=== PATIENT | female | born 1990 | race Caucasian/White ===

== ENCOUNTER 2020-01-09 15:43 | Inpatient (IN) | payer OTHER, SELFPAY ==
[2020-01-09] VITALS (34 sets, daily range): BP systolic 85–149; BP diastolic 45–108; PULSE 48–106; RESP 18; TEMP 36.4–36.7; O2SAT 91–100; BMI 19.1
--- NOTE | 2020-01-09 15:43 | LDADM ---
This patient, Ivonne Valle, was admitted to Labor/Delivery/Recovery 106 on 01/09/20 at 15:43. Plans for labor, pain management and were discussed with patient. Patient/family oriented to hospital policies and general routines including ID bracelet, bed and alarms, visiting hours, pain management, procedures, bathroom and other care routines, personal items, smoking policy, room service/diet and guest tray routines, security routines, and visiting hours. Patient/Family are encouraged to report perceived risks to care and to ask questions if they do not understand what they are told or what they should do. See OBIX for further documentation.
--- NOTE | 2020-01-09 16:09 | PM.OBPRVD ---
OB - Delivery Note Procedure Procedure: delivery of placenta Intrapartal events: None Induction method: none Delivery monitor: none Route of delivery: Laceration description: None Specimen: Yes Estimated blood loss (mL): 50 Anesthesia type: None Disposition: floor Complications: home delivery history of poor compliance cocaine use [place] Baby Date of : 01/09/20 Time of : 15:17 Weeks of gestation at delivery: 34 gender: Female presentation: vertex
--- NOTE | 2020-01-09 16:12 | P.HP_ITS ---
H&P: HPI History of Present Illness Chief complaint: delivery Narrative: Ivonne Valle is a 29 year old female 3 para 0202 presents via ambulance from delivery. Last menstrual period was 05/20/2019 EDC 02/24/2020 9 is confirmed by a 12 week visit. She had history of poor compliance being seen at 12 weeks and lastly at 27 weeks she had not been seen since. She was positive for cocaine on her initial urine drug screen as well as THC. On admission the placenta is delivered. There is appro [id number] of blood loss with delivery of the placenta. Review of Systems Review of Systems: All systems reviewed & are unremarkable except as noted in HPI and below Meds Home Medications and Allergies Allergies Allergy/AdvReac Type Severity Reaction Status Date / Time Penicillins Allergy Mild Verified 02/15/15 07:28 Vital Signs Vital Signs - 24 hr 01/09/20 15:50 01/09/20 16:00 Pulse Rate 80 102 H Blood Pressure 132/89 145/99 H Exam Const: General: no acute distress Eyes: General: appearance normal, both eyes and all related structures Neck: Neck: supple and no JVD Thyroid: thyroid normal Resp: Effort & Inspection: normal respiratory effort Auscultation: clear to auscultation bilaterally Cardio: Rate: regular rate Rhythm: regular rhythm GI: Inspection: normal to inspection (The fundus was firm well below the umbilicus) : General: Yes other (Placenta is delivered with no tears seen.) Skin: General skin exam: no rashes or lesions noted Extrem: General: normal to inspection and no edema Psych: Mental Status: mental status grossly normal Affect: normal affect Assessment and Plan Additional Plan Impression: 34 week now delivered the history of drug abuse poor compliance Plan: Placenta was delivered. A urine drug screen OB undertaken. Baby appears to be stable is being attended to by nursery
[2020-01-09 16:32] LABS: Basophils Absolute Auto 0.1 K/mm3 (0.0-0.1); Basophils Percent Auto 0.3 % (0.2-1.2); Hemoglobin 13.4 g/dL (12.0-15.0); Immature Granulocyte Absolute 0.45 K/mm3 (0.00-0.031); Immature Granulocyte Percent A 1.4 % (0-0.5); Lymphocytes Absolute Auto 1.49 K/mm3 (0.9-3.2); Lymphocytes Percent Auto 4.7 % (18.3-44.2); Mean Corpuscular HGB Conc 33.5 g/dl (32-36); Mean Corpuscular Hemoglobin 29.8 pg (26-34); Mean Corpuscular Volume 88.9 fl (80-100); Mean Platelet Volume 11.9 fl (7.4-10.4); Monocytes Absolute Auto 0.9 K/mm3 (0.1-0.6); Monocytes Percent Auto 2.8 % (2.6-8.5); Neutrophils Absolute Auto 28.9 K/mm3 (1.3-6.7); Neutrophils Percent Auto 90.8 % (45.5-73.1); Platelet Count Result 189 k/mm3 (150-375); Red Cell Distribution Width 13.5 % (11.5-14.5); White Blood Count 31.8 K/mm3 (4.5-10.0)
--- NOTE | 2020-01-09 16:52 | PC.NURSE ---
Addendum entered by Analia Vazquez RN 01/09/20 17:34: APGARS WERE 9/9 PER CYBER SECURITY INSTRUCTOR Original Note: ESA ARRIVED VIA AMBULANCE AT 1543 ON STRETCHER WITH FEMALE BABY IN HER ARMS. TAKEN TO ROOM 6 AND EVALUATED FOR PLACENTA B/C PT SCREAMING IN PAIN, PLACENTA REMAINED INTACT AND UNDELIVERED. NO ABNORMAL BLEEDING NOTED. PREPPED ROOM FOR DELIVERY OF PLACENTA. PT INTO A GOWN. IVF INFILTRATED IN LEFT AC AND REMOVED. Teja VALDEZ RN CALLED AND REPORTED SITUATION AND REQUESTED IN DR JON'S OFFICE AT [address] DEISY RAYMUNDO RESPONDED [id number] AND IS COMING DOWN FROM THE OFFICE. DR DEISY RAYMUNDO IN ROOM AT 1555 AND PT PLACED IN STIRRUPS FOR DELIVERY. PLACENTA DELIVERED AT 1604 [address] DEISY RAYMUNDO STATED NO IV PITOCIN IF WE CAN'T GET A LINE. FUNDUS IS FIRM AND SCANT BLEEDING, ALSO DOES NOT WANT IM PITOCIN WHEN ASKED. CLEANED UP AND WARM BLANKETS AND WILL DO ADMISSION. PT DENIES COCAINE FOR ONE WEEK AT LEAST, BUT MARIJUANA YESTERDAY AND TODAY WILL ATTEMPT TO GET A DRUG SCREEN B/C BABY IS JITTERY IN THE CRIB. PATIENT STATES HER WATER BROKE ?1445 HAD BEEN HAVING CONTRACTIONS ALL DAY BUT WHEN HER WATER BROKE THEY WERE WORSE AND CALLED 911...AMBULANCE ARRIVED AT 1512 AND CYBER SECURITY INSTRUCTOR DELIVERED VIABLE BABY GIRL AT 1517. APGARS WERE 7/9 PER CYBER SECURITY INSTRUCTOR. JUAN RIVERA/Teja VALDEZ RN/Philipp FERNANDES RN
[2020-01-09] MEDS: IBUPROFEN 600 MG TABLET PO (17:15)
[2020-01-09 17:30] LABS: HIV 1/2 Ab P24 Ag Result Negative (Negative)
[2020-01-09] MEDS: WITCH HAZEL 40 PADS 1 PAD TOPICAL (17:31)
[2020-01-09] MEDS: BENZOCAINE 20% AER SPR (*SP) 56 GM CAN 1 SPRAY TOPICAL (17:31)
[2020-01-09 18:01] LABS: Amphetamine Screen Urine Negative (Negative); Barbiturate Screen Urine Negative (Negative); Benzodiazepines Screen Urine Negative (Negative); Cannabinoid Screen Urine Positive (Negative); Cocaine Screen Urine Negative (Negative); Methadone Screen Urine Negative (Negative); Opiate Screen Urine Negative (Negative); Phencyclidine Screen Urine Negative (Negative)
--- NOTE | 2020-01-09 18:54 | OBPPTRN ---
Patient transferred to post room #282 via wheelchair. Support person present. Oriented to unit, room, information board, rooming in, admission packet and security measures. Patient verbalizes understanding. with patient.
[2020-01-10 05:26] LABS: Hematocrit 33.5 % (37.0-47.0); Hemoglobin 11.2 g/dL (12.0-15.0)
[2020-01-10 06:54] LABS: Rapid Plasma Reagin Non-Reactive (NonReactive)
--- NOTE | 2020-01-10 07:18 | PM.OBPNVD ---
OB - PN: Subj Subjective Date/time seen: 01/10/20 07:18 Patient comments: no complaints and pain well controlled baby status: doing well OB - PN: Obj Data Labs CBC & Chem 7: 01/10/20 04:24 Labs: Laboratory Results - last 24 hr 01/09/20 01/09/20 01/09/20 16:13 16:13 16:13 WBC 31.8 H RBC 4.50 Hgb 13.4 Hct 40.0 MCV 88.9 MCH 29.8 MCHC 33.5 RDW 13.5 Plt Count 189 MPV 11.9 H Immature Gran % (Auto) 1.4 H Neut % (Auto) 90.8 H Lymph % (Auto) 4.7 L Mason % (Auto) 2.8 Eos % (Auto) 0.0 Baso % (Auto) 0.3 Lymph # (Auto) 1.49 Mason # (Auto) 0.9 H Eos # (Auto) 0.0 Baso # (Auto) 0.1 Abs Immat Gran (auto) 0.45 H Absolute Neuts (auto) 28.9 H Absolute Nucleated RBC 0.0 Nucleated RBC % 0.0 Urine Opiates Screen Urine Methadone Screen Ur Barbiturates Screen Ur Phencyclidine Scrn Ur Amphetamine Screen U Benzodiazepines Scrn Urine Cocaine Screen U Cannabinoids Screen RPR Non-reactive HIV 1&2 Ab/P24 Ag 4thGn Blood Type O Positive Antibody Screen Negative 01/09/20 01/09/20 01/10/20 16:28 17:34 04:24 WBC RBC Hgb 11.2 L Hct 33.5 L MCV MCH MCHC RDW Plt Count MPV Immature Gran % (Auto) Neut % (Auto) Lymph % (Auto) Mason % (Auto) Eos % (Auto) Baso % (Auto) Lymph # (Auto) Mason # (Auto) Eos # (Auto) Baso # (Auto) Abs Immat Gran (auto) Absolute Neuts (auto) Absolute Nucleated RBC Nucleated RBC % Urine Opiates Screen Negative Urine Methadone Screen Negative Ur Barbiturates Screen Negative Ur Phencyclidine Scrn Negative Ur Amphetamine Screen Negative U Benzodiazepines Scrn Negative Urine Cocaine Screen Negative U Cannabinoids Screen Positive A RPR HIV 1&2 Ab/P24 Ag 4thGn Negative Blood Type Antibody Screen OB - PN A/P Plan day: 1 Plan: routine care Time Spent With Patient Time: Total time spent is greater than 50% in coordination of care (as documented) at patient's floor/unit and/or counseling patient: Time with patient: less than 15 minutes Review of Systems Review of Systems: All systems reviewed & are unremarkable except as noted in HPI and below Exam Const: General: no acute distress Eyes: General: appearance normal, both eyes and all related structures Neck: Neck: supple and no JVD Thyroid: thyroid normal Resp: Effort & Inspection: normal respiratory effort Auscultation: clear to auscultation bilaterally Cardio: Rate: regular rate Rhythm: regular rhythm GI: Inspection: non-distended GI Palp: Yes Soft to palpation, No Tenderness to palpation present (GI) and No Guarding due to palpation present (GI) Auscultation: normal bowel sounds : General: Yes bladder normal to palpation External Female Exam: normal external appearance Speculum Exam - Vagina: normal vaginal discharge and No vaginal bleeding Speculum Exam - Cervix: nontender Bimanual exam- vagina & uterus: bladder normal to palpation and No Cervical tenderness present OB/external & speculum: No vaginal bleeding Skin: General skin exam: no rashes or lesions noted Extrem: General: normal to inspection and no edema Psych: Mental Status: mental status grossly normal Affect: normal affect
[2020-01-10] MEDS: MULTIVIT/MIN/PREN/FOL AC/IRON TABLET 1 TAB PO (07:39)
[2020-01-10] MEDS: IBUPROFEN 600 MG TABLET PO ×2 (07:39→12:34)
[2020-01-10] MEDS: DOCUSATE SODIUM 100 MG CAPSULE PO ×2 (07:39→15:04)
[2020-01-10 07:56] VITALS: BP 123/74; PULSE 64; RESP 18; TEMP 36.6
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
[2020-01-10] MEDS: BENZOCAINE 20% AER SPR (*SP) 56 GM CAN 1 SPRAY TOPICAL (15:04)
[2020-01-10] MEDS: WITCH HAZEL 40 PADS 1 PAD TOPICAL (15:04)
[2020-01-10 20:00] VITALS: BP 108/82; PULSE 98; RESP 18; TEMP 36.7
--- NOTE | 2020-01-11 07:02 | PM.DS ---
DS: Diagnosis Admitting Diagnosis Admitting Diagnosis: 34 weeks no care DS: Summary Time Spent with Patient Time attestation: Total time spent providing and/or coordinating discharge services: Exam Const: General: no acute distress Eyes: General: appearance normal, both eyes and all related structures Neck: Neck: supple and no JVD Thyroid: thyroid normal Resp: Effort & Inspection: normal respiratory effort Auscultation: clear to auscultation bilaterally Cardio: Rate: regular rate Rhythm: regular rhythm GI: Inspection: non-distended GI Palp: Yes Soft to palpation, No Tenderness to palpation present (GI) and No Guarding due to palpation present (GI) Auscultation: normal bowel sounds : General: Yes bladder normal to palpation External Female Exam: normal external appearance Speculum Exam - Vagina: normal vaginal discharge and No vaginal bleeding Speculum Exam - Cervix: nontender Bimanual exam- vagina & uterus: bladder normal to palpation and No Cervical tenderness present OB/external & speculum: No vaginal bleeding Skin: General skin exam: no rashes or lesions noted Extrem: General: normal to inspection and no edema Psych: Mental Status: mental status grossly normal Affect: normal affect DS: Data Data Completed and Pending Pending studies at discharge: Pending at discharge 01/09/20 17:35 Surgical [PTH] Routine Discharge Plan Discharge Attending physician on discharge: Santi Calvert Discharging Clinician: Snati Calvert Patient Disposition: Home Health Service Activity: no shower, no straining, may drive after 2 weeks and pelvic rest Diet: heart healthy Wound Care Instructions: follow printed instructions Discharge Instructions: Education: Mom and Baby Guide Given to: Mother Follow-Up: Call your delivering provider's office for an appointment to be seen in: 4 Weeks Mom and baby should come to the [facility] for the follow-up appointment. Appointment Date/Time: January 12, 2020 at 11:00 am What to expect at your follow-up visit: Blood Pressure Check Call [phone] if you are unable to keep your appointment time. BREAST CARE: 1. Wear a snug supportive bra. 2. For engorgement discomfort: Bottle Feeding: A. May apply ice packs PERINEAL CARE: 1. Until bleeding stops, use your kristopher bottle after urinating 2. Change your pad frequently throughout the day 3. You may take sitz baths several times a day (fill your bathtub with warm water and soak for 20 minutes.) Do NOT bathe in the water 4. No tub baths until seen by your physician - You may shower ACTIVITY: 1. Rest as much as possible. 2. Do not exercise or lift anything heavier than your baby (such as laundry or other children.) 3. Avoid stairs or driving as much as possible. 4. Do not put anything into the vagina. No douching, tampons, or sexual activity until seen by physician. NOTIFY PHYSICIAN IF YOU HAVE ANY QUESTIONS OR IF ANY OF THE FOLLOWING SYMPTOMS OCCUR: 1. If your perineum becomes red, swollen, or more painful than what you have experienced in the hospital. 2. If your vaginal bleeding becomes foul smelling. 3. If your vaginal bleeding becomes more heavy than a period or if your bleeding changes from pink to bright red. However, you may pass an occasional walnut-sized clot once or twice for the first week . 4. If you experience a sharp, shooting pain in you calves. 5. If you discover a hard, reddened area on your breast or if you experience flu-like symptoms. 6. Call for temp 100.4 or greater DIET: 1. Eat regular, well-balanced meals. 2. Drink plenty of fluids daily. If , drink to thirst. Patient Instructions: Antibiotic Form Stand Alone Forms: General Discharge Information Follow-up/Referrals: Santi Calvert MD [Physician] - Discharge Medications: Continued ergocalciferol (vitamin D2) 1,250 mcg
--- NOTE | 2020-01-11 07:04 | P.PNOB_ITS ---
OB - PN: Subj Subjective Date/time seen: 01/11/20 07:04 Patient comments: no complaints and pain well controlled OB - PN: Obj Data Labs CBC & Chem 7: 01/10/20 04:24 OB - PN A/P Plan day: 2 Plan: routine care, discharge home and follow up 6 weeks Time Spent With Patient Time: Total time spent is greater than 50% in coordination of care (as documented) at patient's floor/unit and/or counseling patient: Time with patient: less than 15 minutes Review of Systems Review of Systems: All systems reviewed & are unremarkable except as noted in HPI and below Exam Const: General: no acute distress Eyes: General: appearance normal, both eyes and all related structures Neck: Neck: supple and no JVD Thyroid: thyroid normal Resp: Effort & Inspection: normal respiratory effort Auscultation: clear to auscultation bilaterally Cardio: Rate: regular rate Rhythm: regular rhythm GI: Inspection: non-distended GI Palp: Yes Soft to palpation, No Tenderness to palpation present (GI) and No Guarding due to palpation present (GI) A uscultation: normal bowel sounds : General: Yes bladder normal to palpation External Female Exam: normal external appearance Speculum Exam - Vagina: normal vaginal discharge and No vaginal bleeding Speculum Exam - Cervix: nontender Bimanual exam- vagina & uterus: bladder normal to palpation and No Cervical tenderness present OB/external & speculum: No vaginal bleeding Skin: General skin exam: no rashes or lesions noted Extrem: General: normal to inspection and no edema Psych: Mental Status: mental status grossly normal Affect: normal affect
[2020-01-11 08:00] VITALS: BP 100/71; PULSE 64; RESP 16; TEMP 36.6
[2020-01-11 09:30] VITALS: PULSE 64; RESP 16; O2SAT 99
--- NOTE | 2020-01-11 09:30 | PC.NURSE ---
PT introductions made and plan of care discussed per post , pain management, bottle feeding, daily care activities, pending discharge to home. DCFS visit and pending instructions. PT verbalized understanding of such care.
--- NOTE | 2020-01-11 09:30 | PC.NURSE ---
Patient viewed the discharge video Mother & Baby Care, The First Two Weeks . Patient was given the opportunity and encouraged to ask questions. Patient verbalized understanding of information shared and has been given the mother/baby guide for home reference.
[2020-01-11] MEDS: DOCUSATE SODIUM 100 MG CAPSULE PO (09:31)
[2020-01-11] MEDS: IBUPROFEN 600 MG TABLET PO (09:31)
--- NOTE | 2020-01-11 11:15 | PC.NURSE ---
PT tearful and states that she is concerned about her other child not being present at the home visit with DCFS. Infant at a friends and they do not have the car seat to get child to the visit. Discussed various options. Pt reaching out to other people for assistance.
--- NOTE | 2020-01-11 11:30 | PC.NURSE ---
PT outside to smoke unaccompanied. PT had been informed of [place] no smoking policy.
--- NOTE | 2020-01-11 12:45 | PC.NURSE ---
PT received discharge instructions per protocol and verbalized understanding of such instructions.
--- NOTE | 2020-01-11 13:18 | PC.NURSE ---
PT discharged to home ambulatory accompanied by significant other and to waiting car. Follow up appts confirmed
--- NOTE | 2020-01-11 16:24 | PCCCNOTE ---
Care Coordination spoke with Bree Gasca with DCFS who states that she came and spoke with pt. during hospitalization. Bree states that pt. was appropriate during assessment. Bree did a home visit with FOB and states that baby is safe to return home with pt. and FOB. DCFS will continue to follow family. Pt.'s intake ID is [id number]. No further need for Care Coordination services at this time.
[2020-01-12 11:26] VITALS: BP 118/76; PULSE 78; RESP 18; TEMP 36.9
== END 2020-01-11 13:18 | disposition home or self-care (01) | DRG 560 ==
LOC: ANHLDR 16:39 → ANHOB2 01-10 13:28 → ANHLDR 01-15 06:46 → ANHOB2 01-15 06:46
PROVIDERS: Admitting Provider Student in an Organized Health Care Education/Training Program; Visit Provider Obstetrics & Gynecology
DX: Z39.0 Encounter for care and examination of mother immediately after delivery (principal); O99.325 Drug use complicating the puerperium; F12.10 Cannabis abuse, uncomplicated; F14.10 Cocaine abuse, uncomplicated; O99.335 Smoking (tobacco) complicating the puerperium; F17.210 Nicotine dependence, cigarettes, uncomplicated
CPT/HCPCS: 36415; 59414; 80307; 85014; 85018; 85025; 86592; 86703; 86850; 86900; 86901; 88307; A9270; G0432; J2590

== ENCOUNTER 2021-02-08 06:25 | Inpatient (IN) | payer OTHER, SELFPAY ==
[2021-02-08] VITALS (18 sets, daily range): BP systolic 117–146; BP diastolic 58–101; PULSE 51–93; RESP 16–18; TEMP 36.4–36.8; BMI 15.7
--- NOTE | 2021-02-08 07:16 | PM.IMHP ---
H&P: HPI History of Present Illness Date/Time: 02/08/21 07:16 30yo @ 34w5d by 2nd trimester US brought into to L&D by EMS after home delivery. She states that she started to have contractions around 4-5am which worsened throughout the morning. Was unsure if she was going into labor. She has been dealing with dental issues and has broken teeth on her left side that is causing pain. She states she took one vicodin from a friend last night because of the pain. She reports marijuana and tobacco use but no other drugs. Chief Complaint: I delivered at home Review of Systems Constitutional: Constitutional: Reports no additional constitutional complaints Eyes: Eyes: Reports no additional eye complaints ENT: Reports dental pain Cardiovascular: Cardiovascular: Reports no additional cardiovascular complaints Respiratory: Respiratory: Reports no additional respiratory complaints Gastrointestinal: Gastrointestinal: Reports no additional gastrointestinal complaints Genitourinary: Genitourinary: Reports pelvic pain Musculoskeletal: Musculoskeletal: Reports no additional musculoskeletal complaints Integumentary/Breasts: Skin/Breast: Reports system reviewed and no additional complaints, except as docu Neurologic: Reports system reviewed and no additional complaints, except as documented Psychiatric: Psychiatric: Reports no additional psychiatric complaints Endocrine: Endocrine: Reports no additional endocrine complaints Hematologic/Lymphatic: Hematologic/Lymphatic: Reports no additional hematologic/lymphatic complaints Allergic/Immunologic: Allergic/Immunologic: Reports no additional allergic/immunologic complaints [facility] Family History Family History Mother Scoliosis Chronic obstructive pulmonary disease Social History Social History (Updated 02/08/21 @ 07:21 by Zander Corona DO) Years smoked: 14 Smoking status: Current every day smoker Tobacco type: cigarettes Second hand tobacco smoke exposure: Yes Substance use: current Substance use type: marijuana Meds Home Medications and Allergies Home Medications Medication Instructions Recorded Confirmed Type Se--19 1 tablet PO DAILY 01/09/20 01/09/20 History ergocalciferol (vitamin D2) 1,250 mcg PO WEEKLY 01/09/20 01/09/20 History Allergies Allergy/AdvReac Type Severity Reaction Status Date / Time Penicillins Allergy Mild Verified 02/15/15 07:28 Vital Signs Vital Signs - 24 hr 02/08/21 06:31 02/08/21 07:00 02/08/21 07:15 Pulse Rate 90 93 Blood Pressure 132/88 122/89 139/99 H Exam Const: General: cooperative, alert, awake, Physically active, anxious, poor hygiene and uncomfortable; No comfortable (uncomfortable and in pain) Orientation/consciousness: oriented to person, oriented to place and oriented to time Resp: Effort & Inspection: normal respiratory effort, able to speak in complete sentences, normal respiratory pattern, no audible wheezes and no cough Cardio: Rate: regular rate GI: GI Palp: No abdominal tenderness, Yes Soft to palpation, No Tenderness to palpation present (GI) and No Guarding due to palpation present (GI) : External Female Exam: normal external appearance OB/external & speculum: other (placenta still in situ) Neuro: General: oriented to person, oriented to place and oriented to time Psych: Appearance: grossly normal Mental Status: mental status grossly normal Speech and movement: Normal speech and movement present Affect: normal affect Attitude: cooperative Thought process: Normal thought process present Thought content: Yes Normal thought content present Insight: Good insight present (Psych) Judgement: Good judgement present (Psych) Assessment and Plan Assessment and plan (1) (normal spontaneous vaginal delivery): Code(s): O80 - Encounter for full-term uncomplicated delivery Status: Acute Assessment and Plan:
--- NOTE | 2021-02-08 07:28 | WPDHPUPDATE1 ---
History and Physical Update Update Date/Time: 02/08/21 07:28 History and Physical has been reviewed, including an updated exam of the patient. There are NO changes in the patient's condition. Risks, benefits, and alternatives have been discussed and questions answered. Patient agrees to proceed with procedure.
--- NOTE | 2021-02-08 07:36 | P.PCNOB_ITS ---
OB - Delivery Note Procedure Delivery date: 02/08/21 Procedure: Normal spontaneous vaginal delivery events: Labor < 37 Weeks Intrapartal events: None Induction method: none Delivery monitor: none Route of delivery: (home delivery) Laceration Description: Periurethral and Perineal - 1st Degree Quantitative Blood Loss (ml): 200 Anesthesia type: None Disposition: floor Narrative: Upon arrival to the labor room, the patient was assessed and placenta was still noted in situ. She was feeling pressure so with gentle traction of the cord and fundal pressure was applied. Placenta was delivered spontaneously. IV oxytocin administered and fundal massage applied. Exam was performed to identify any lacerations. 1st degree perineal laceration was noted to be hemostatic and the was a periurethral laceration that was also hemostatic. No repair was needed. Patient tolerated the procedure well. All instrument and sponge counts were correct at the end of the procedure. [place] Baby Date of : 02/08/21 Time of : 06:00 Weeks of gestation at delivery: 34 gender: Female Weight (pounds): 9 Weight (ounces): 9 presentation: unknown Placenta delivery description: Spontaneous cord vessel description: 3 Vessels score one minute: 7 score five minutes: 8
[2021-02-08] MEDS: OXYTOCIN 30 UNITS/NS 500 ML 30 UNITS/500 ML BAG 125 UNITS IV CONT (07:54)
[2021-02-08] MEDS: IBUPROFEN 600 MG TABLET PO (07:55)
--- NOTE | 2021-02-08 08:06 | LDADM ---
This patient, Ivonne Valle, was admitted to Labor/Delivery/Recovery 106 on 02/08/21 at 06:25. Plans for labor, pain management and were discussed with patient. Patient/family oriented to hospital policies and general routines including ID bracelet, bed and alarms, visiting hours, pain management, procedures, bathroom and other care routines, personal items, smoking policy, room service/diet and guest tray routines, security routines, and visiting hours. Patient/Family are encouraged to report perceived risks to care and to ask questions if they do not understand what they are told or what they should do. See OBIX for further documentation.
[2021-02-08 08:10] LABS: Basophils Percent Auto 0.3 % (0.2-1.2); Hematocrit 39.4 % (37.0-47.0); Immature Granulocyte Absolute 0.17 K/mm3 (0.00-0.031); Immature Granulocyte Percent A 1.4 % (0-0.5); Lymphocytes Absolute Auto 1.22 K/mm3 (0.9-3.2); Lymphocytes Percent Auto 9.8 % (18.3-44.2); Mean Corpuscular Hemoglobin 29.1 pg (26-34); Mean Corpuscular Volume 88.1 fl (80-100); Mean Platelet Volume 12.1 fl (7.4-10.4); Monocytes Absolute Auto 0.4 K/mm3 (0.1-0.6); Monocytes Percent Auto 3.2 % (2.6-8.5); Neutrophils Absolute Auto 10.6 K/mm3 (1.3-6.7); Neutrophils Percent Auto 85.3 % (45.5-73.1); Platelet Count Result 139 k/mm3 (150-375); Red Blood Count 4.47 M/mm3 (4.2-5.4); Red Cell Distribution Width 13.3 % (11.5-14.5); White Blood Count 12.4 K/mm3 (4.5-10.0)
[2021-02-08 08:15] LABS: Amphetamine Screen Urine Negative (Negative); Barbiturate Screen Urine Negative (Negative); Benzodiazepines Screen Urine Negative (Negative); Cannabinoid Screen Urine Positive (Negative); Cocaine Screen Urine Positive (Negative); Methadone Screen Urine Negative (Negative); Opiate Screen Urine Negative (Negative); Phencyclidine Screen Urine Negative (Negative)
[2021-02-08 08:52] LABS: HIV 1/2 Ab P24 Ag Result Negative (Negative)
[2021-02-08 09:09] LABS: Hepatitis B Surface Antigen Negative (Negative); Rubella IgG Antibody 31.8 IU/ML
[2021-02-08] MEDS: WITCH HAZEL 40 PADS 1 PAD TOPICAL (11:14)
--- NOTE | 2021-02-08 11:23 | PC.NURSE ---
Patient transferred to post room #282 per wheelchair from labor and delivery. Support person present. Oriented to unit, room, information board, rooming in, admission packet and security measures. Patient verbalizes understanding.
--- NOTE | 2021-02-08 18:29 | PC.NURSE ---
Pt off the unit frequently to 'get fresh air' or 'grab something from the car'. She left the at the desk approximately 6 times in six hours to leave the unit. The father of the baby went with her most times.
[2021-02-09 01:20] VITALS: BP 118/70; PULSE 95; RESP 18; TEMP 36.3
--- NOTE | 2021-02-09 04:38 | PC.NURSE ---
02/08/212108 through 2125 Patient went out to get stuff from her boyfriend (a blanket) . Mother also brought baby to the nursery at 2300 so she could get some sleep.
[2021-02-09 04:50] VITALS: BP 119/87; PULSE 50; RESP 16; TEMP 36.3
[2021-02-09 04:58] LABS: Hematocrit 34.8 % (37.0-47.0); Hemoglobin 11.5 g/dL (12.0-15.0)
[2021-02-09 08:00] LABS: Rapid Plasma Reagin Non-Reactive (NonReactive)
--- NOTE | 2021-02-09 08:00 | PC.NURSE ---
PT introductions made and plan of care discussed per post , pain management, feeding issues, daily care activities . PT received such instructions on a one to one discussion with mom baby care guide as a resource. Barriers to learning may include drug related issues and will attempt to insure understanding of all policies and procedures and care while in hospital this shift. mom only recipient of such instructions and verbalized understanding of such care.
--- NOTE | 2021-02-09 08:10 | PC.NURSE ---
PT went off floor ambulatory for snacks . PT aware of hospital policy for smoking. PT returned at 0810
--- NOTE | 2021-02-09 08:10 | PM.OBPNVD ---
OB - PN: Subj Subjective Date/time seen: 02/09/21 08:10 30yo s/p home delivery on 02/08. She was transferred to the hospital by EMS. Doing well with pain and bleeding. Light lochia. Cramping alleviated with pain medication. Denies chest pain, SOB, nausea. UDS was positive for cocaine and marijuana. She states she has only used marijuana over the past year and denies knowingly using cocaine. She states that the only way she could have tested positive for cocaine is if the marijuana she used was lined with cocaine. OB - PN: Obj Data Labs CBC & Chem 7: 02/09/21 04:51 Labs: Laboratory Results - last 24 hr 02/08/21 02/08/21 02/08/21 07:38 07:38 07:38 WBC Cancelled RBC Cancelled Hgb Cancelled Hct Cancelled MCV Cancelled MCH Cancelled MCHC Cancelled RDW Cancelled Plt Count Cancelled MPV Cancelled Immature Gran % (Auto) Cancelled Neut % (Auto) Cancelled Lymph % (Auto) Cancelled Boone % (Auto) Cancelled Eos % (Auto) Cancelled Baso % (Auto) Cancelled Lymph # (Auto) Cancelled [place]one # (Auto) Cancelled Eos # (Auto) Cancelled Baso # (Auto) Cancelled Abs Immat Gran (auto) Cancelled Absolute Neuts (auto) Cancelled Absolute Nucleated RBC Cancelled Nucleated RBC % Cancelled % Immature Plt Fraction Cancelled Urine Opiates Screen Urine Methadone Screen Ur Barbiturates Screen Ur Phencyclidine Scrn Ur Amphetamine Screen U Benzodiazepines Scrn Urine Cocaine Screen U Cannabinoids Screen RPR Non-reactive Hep Bs Antigen HIV 1&2 Ab/P24 Ag 4thGn Rubella IgG Antibody Blood Type O Positive Antibody Screen Negative 02/08/21 02/08/21 02/08/21 07:38 07:38 07:38 WBC 12.4 H RBC 4.47 Hgb 13.0 Hct 39.4 MCV 88.1 MCH 29.1 MCHC 33.0 RDW 13.3 Plt Count 139 L MPV 12.1 H Immature Gran % (Auto) 1.4 H Neut % (Auto) 85.3 H Lymph % (Auto) 9.8 L Boone % (Auto) 3.2 Eos % (Auto) 0.0 Baso % (Auto) 0.3 Lymph # (Auto) 1.22 Boone # (Auto) 0.4 Eos # (Auto) 0.0 Baso # (Auto) 0.0 Abs Immat Gran (auto) 0.17 H Absolute Neuts (auto) 10.6 H Absolute Nucleated RBC 0.0 Nucleated RBC % 0.0 % Immature Plt Fraction Urine Opiates Screen Negative Urine Methadone Screen Negative Ur Barbiturates Screen Negative Ur Phencyclidine Scrn Negative Ur Amphetamine Screen Negative U Benzodiazepines Scrn Negative Urine Cocaine Screen Positive A U Cannabinoids Screen Positive A RPR Hep Bs Antigen Negative HIV 1&2 Ab/P24 Ag 4thGn Rubella IgG Antibody 31.8 Blood Type Antibody Screen 02/08/21 02/09/21 07:38 04:51 WBC RBC Hgb 11.5 L Hct 34.8 L MCV MCH MCHC RDW Plt Count MPV Immature Gran % (Auto) Neut % (Auto) Lymph % (Auto) Boone % (Auto) Eos % (Auto) Baso % (Auto) Lymph # (Auto) [place] # (Auto) Eos # (Auto) Baso # (Auto) Abs Immat Gran (auto) Absolute Neuts (auto) Absolute Nucleated RBC Nucleated RBC % % Immature Plt Fraction Urine Opiates Screen Urine Methadone Screen Ur Barbiturates Screen Ur Phencyclidine Scrn Ur Amphetamine Screen U Benzodiazepines Scrn Urine Cocaine Screen U Cannabinoids Screen RPR Hep Bs Antigen HIV 1&2 Ab/P24 Ag 4thGn Negative Rubella IgG Antibody Blood Type Antibody Screen OB - PN A/P Assessment and Plan (1) Polysubstance abuse: Code(s): F19.10 - Other psychoactive substance abuse, uncomplicated Status: Acute Assessment and Plan: Social care consult (2) Limited care: Code(s): O09.30 - Supervision of with insufficient care, unspecified trimester Status: Acute Assessment and Plan: Social care consult (3) (normal spontaneous vaginal delivery): Code(s): O80 - Encounter for full-term uncomplicated delivery
--- NOTE | 2021-02-09 09:40 | PC.NURSE ---
pt off floor @ 0925 ambulatory unaccompanied till 0940
[2021-02-09 10:30] VITALS: BP 137/93; PULSE 81; RESP 18; TEMP 36.5; O2SAT 100
[2021-02-09] MEDS: IBUPROFEN 600 MG TABLET PO ×2 (10:31→17:52)
[2021-02-09] MEDS: DOCUSATE SODIUM 100 MG CAPSULE PO ×2 (10:31→17:52)
[2021-02-09] MEDS: ACETAMINOPHEN 325 MG TABLET 650 MG PO ×2 (10:31→17:50)
--- NOTE | 2021-02-09 11:00 | PC.NURSE ---
PT off floor ambulatory unaccompanied at 1045 till 1100
--- NOTE | 2021-02-09 13:20 | PC.NURSE ---
PT walked off unit at 1305 till 1320
--- NOTE | 2021-02-09 15:00 | PC.NURSE ---
PT ambulated off floor at 1445 and returned at 1500
--- NOTE | 2021-02-09 16:57 | PCCCNOTE ---
Addendum entered by RADHA Lizama 02/10/21 14:42: Dorothy with DCFS indicates anticipation for DCFS to take custody of baby girl at her discharge. Mother has been discharged and court date with DCFS is today at 1300. Awaiting any further needs for baby girl. Following. Original Note: Received referral for positive THC and cocaine on pt. and baby girl UDS. Pt. confirms using THC for appetite but denies any cocaine use for the last year. She purchases THC from [employer] and is unsure if cocaine may have been in THC. She states following all requirements from previous DCFS case. She lives with father of baby, Toribio Del Valle. It is unclear at time of my visit if her 3 year old and 1 year old live with her. She indicates to me that they do however, indicates to nursing that they live with other family. She states that her 8 year old lives with her grandmother at their own arrangement. She states having much support from family and friends. She states having all needed items to care for baby at home. Reported pt. situation to DCFS and Dorothy with DCFS became present at hospital today to meet with pt. (Intake #[id number]). Dorothy will notify care coordination of determination regarding disposition of baby girl once able to investigate further. Following.
--- NOTE | 2021-02-09 17:15 | PC.NURSE ---
PT left unit ambulatory off floor and returned at 1715
--- NOTE | 2021-02-09 19:16 | PC.NURSE ---
Addendum entered by Aliyah Daniel RN 02/10/21 04:37: pt left unit at 1904 and returned at 191 Original Note: pt ambulated off unit
[2021-02-09 20:00] VITALS: BP 128/93; PULSE 103; RESP 18; TEMP 36.8; O2SAT 94
--- NOTE | 2021-02-09 20:35 | PC.NURSE ---
pt left unit at 2014 and returned at 203
--- NOTE | 2021-02-09 23:25 | PC.NURSE ---
pt left unit at 2310 and returned at 2328
--- NOTE | 2021-02-10 02:10 | PC.NURSE ---
pt left unit at 0155 and returned at 0210
[2021-02-10 08:05] VITALS: BP 125/90; PULSE 87; RESP 16; TEMP 36.6; O2SAT 100
--- NOTE | 2021-02-10 08:11 | PC.NURSE ---
0725 Left unit, 0749 returned to room 282.
[2021-02-10] MEDS: ACETAMINOPHEN 325 MG TABLET 650 MG PO (08:30)
[2021-02-10] MEDS: IBUPROFEN 600 MG TABLET PO (08:32)
[2021-02-10] MEDS: DOCUSATE SODIUM 100 MG CAPSULE PO (08:33)
--- NOTE | 2021-02-10 16:44 | PC.NURSE ---
1010 Left floor. 1025 Returned to room 282.
--- NOTE | 2021-02-12 11:12 | PM.OBDSVD ---
DS: Admitting Diagnosis Admitting Diagnosis Admitting Diagnosis: home vaginal delivery DS: Discharge Diagnosis Discharge Diagnosis (1) Polysubstance abuse: Code(s): F19.10 - Other psychoactive substance abuse, uncomplicated Status: Acute Assessment and Plan: Social care consult (2) Limited care: Code(s): O09.30 - Supervision of with insufficient care, unspecified trimester Status: Acute Assessment and Plan: Social care consult (3) (normal spontaneous vaginal delivery): Code(s): O80 - Encounter for full-term uncomplicated delivery Status: Acute OB - DS: Summary OB Procedures : None OB Procedures Intrapartum: Spontaneous Vag Delivery (home delivery) OB Procedures: : None Time Spent with Patient Time attestation: Total time spent providing and/or coordinating discharge services: Exam Const: General: cooperative, healthy appearing, comfortable, alert, awake, Physically active, anxious, poor hygiene and uncomfortable; No no acute distress Orientation/consciousness: oriented to person, oriented to place and oriented to time Resp: Effort & Inspection: normal respiratory effort, able to speak in complete sentences, normal respiratory pattern, no audible wheezes, no cough and respiratory effort not decreased Cardio: Rate: regular rate GI: GI Palp: No abdominal tenderness and Yes Soft to palpation Neuro: General: oriented to person, oriented to place and oriented to time Psych: Appearance: grossly normal Mental Status: mental status grossly normal Speech and movement: Normal speech and movement present Affect: normal affect Attitude: cooperative Thought process: Normal thought process present Insight: Good insight present (Psych) Judgement: Good judgement present (Psych) DS: Data Data Completed and Pending Completed studies during hospitalization: Pending at discharge 02/08/21 07:06 Surgical [PTH] Routine Discharge Plan Discharge Attending physician on discharge: Zander Corona Consulting providers: Flaca Poe Discharging Clinician: Zander Corona Patient Disposition: Home, Self-Care Activity: may shower, no straining and pelvic rest Diet: as tolerated and regular Discharge Instructions: Education: Mom and Baby Guide Given to: Mother Follow-Up: Call your delivering provider's office for an appointment to be seen in: 3 weeks Mom and baby should come to the [facility] for the follow-up appointment. Appointment Date/Time: 02/11/2021 at 11:00 am Call [phone] if you are unable to keep your appointment time. BREAST CARE: * Wear a snug supportive bra. * For engorgement discomfort: Breast Feeding: * Apply warm moist washcloths * Express milk as needed to relieve engorgement * Wear loose clothing Bottle Feeding: * May apply ice packs * For sore nipples: * Identify correct latch-on * Apply warm moist washcloths before and after nursing * Air dry nipples after nursing * May apply Lansinoh cream to nipples EPISIOTOMY/PERINEAL CARE: * Until bleeding stops, use your kristopher bottle after urinating * Change your pad frequently throughout the day * You may take sitz baths several times a day (fill your bathtub with warm water and soak for 20 minutes.) Do NOT bathe in the water * No tub baths until seen by your physician - You may shower ACTIVITY: * Rest as much as possible. * Do not exercise or lift anything heavier than your baby (such as laundry or other children.) * Avoid stairs or driving as much as possible. * Do not put anything into the vagina. No douching, tampons, or sexual activity until seen by physician. NOTIFY PHYSICIAN IF YOU HAVE ANY QUESTIONS OR IF ANY OF THE FOLLOWING SYMPTOMS OCCUR: * If your episiotomy or incision becomes red, swo
== END 2021-02-10 11:53 | disposition home or self-care (01) | DRG 560 ==
LOC: ANHLDR 07:35 → ANHOB2 11:55
PROVIDERS: Admitting Provider Obstetrics & Gynecology; Visit Provider Obstetrics & Gynecology
DX: O99.335 Smoking (tobacco) complicating the puerperium (principal); F17.210 Nicotine dependence, cigarettes, uncomplicated; O70.0 First degree perineal laceration during delivery; O71.82 Other specified trauma to perineum and vulva
CPT/HCPCS: 36415; 80307; 85014; 85018; 85025; 86592; 86703; 86762; 86850; 86900; 86901; 87340; 88307; A9270; G0432; J2590

== ENCOUNTER 2021-10-04 20:58 | Emergency (ER) | payer OTHER, SELFPAY ==
--- NOTE | 2021-10-04 21:09 | PC.NURSE ---
~2105 male who drove pt to ed entered ED and stated You better call this girl an fucking Uber or cab because I'm leaving. he then exited the ED. This communications writer informed the pt of this and she exited the ED.
== END 2021-10-04 21:09 | disposition left against medical advice (07) ==
LOC: ANHED 21:19
DX: Z53.21 Procedure and treatment not carried out due to patient leaving prior to being seen by health care provider (principal)
CPT/HCPCS: 99199

== ENCOUNTER 2021-10-04 21:33 | Emergency (ER) | payer OTHER, SELFPAY ==
[2021-10-04 21:33] VITALS: BP 121/78; PULSE 68; RESP 18; TEMP 36.5; O2SAT 100
--- NOTE | 2021-10-04 22:19 | PC.NURSE ---
Pt at intake desk stating I'm just going to leave. Pt ambulated out of ed with steady gait. No distress noted.
== END 2021-10-04 22:19 | disposition left against medical advice (07) ==
LOC: ANHED 22:31
DX: R51.9 Headache, unspecified (principal)
CPT/HCPCS: 99199